=== PATIENT | male | born 1950 | race Caucasian/White ===

== ENCOUNTER 2016-07-23 14:47 | Outpatient (CLI) | payer BC | END 2016-07-23 14:48 | disposition home or self-care (01) | DX: G62.89 Other specified polyneuropathies (principal) ==

== ENCOUNTER 2017-03-06 04:56 | Observation (INO) | payer BC ==
--- NOTE | 2017-03-06 05:09 | ED Physician Documentation ---
PD HPI CHEST PAIN - Stated complaint Stated Complaint: CHEST PX - Chief complaint Chief Complaint: Cardiac - History obtained from History obtained from: Patient - History of Present Illness Timing - onset: Last night (He noted onset soon after dinner last night around 6 PM of substernal chest pain and pressure, feeling heaviness and like a bubble feeling in the substernal area. He did not have any discomfort with breathing. He did not have any shortness of breath. He had slight nausea but no vomiting. The symptoms continued for several hours until about 9 PM. He states it lessened at that point and he was able to go to sleep. He had very slight residual discomfort. He was awakened around 430 with the discomfort worse. He did not have any improvement with antacid nor Tylenol. He denies any prior similar episodes.) Timing - onset during: Rest Timing - duration: Hours Timing - details: Abrupt onset, Still present Quality: Pressure, Aching, Dull, Pain Location: Substernal Radiation: Jaw, Left upper extremity. No: Back, Abdominal Improved by: No: Rest, Antacids, Other medication (tylenol) Worsened by: No: Inspiration, Movement, Palpation, Position Associated symptoms: Nausea, Palpitations. No: Shortness of air, Diaphoresis, Feeling faint / dizzy, Cough Similar symptoms before: Has not had sx before Recently seen: Not recently seen Review of Systems Constitutional: denies: Fever Nose: denies: Rhinorrhea / runny nose, Congestion Throat: denies: Sore throat Cardiac: denies: Pedal edema, Calf pain Respiratory: denies: Cough GI: denies: Abdominal Pain, Vomiting, Diarrhea, Bloody / black stool : denies: Dysuria, Frequency Skin: denies: Rash, Lesions Neurologic: reports: Headache (had migraine type headache last evening after the chest pain had started, and the headache improved with Imitrex.). denies: Generalized weakness, Near syncope PD PAST MEDICAL HISTORY - Past Medical History Past Medical History: Yes Cardiovascular: Hypertension, High cholesterol Neuro: Headache/migraine Endocrine/Autoimmune: Other : Benign prostate hypertrophy Other Past Medical History: Factory V - Past Surgical History Past Surgical History: Yes - Present Medications Home Medications: Ambulatory Orders Medication Instructions Recorded Confirmed Ezetimibe [Zetia] 10 mg PO DAILY 12/14/14 03/06/17 Aspirin Chewable [St Sal 81 mg PO DAILY 03/06/17 03/06/17 Aspirin] Cyclobenzaprine [Flexeril] 10 mg PO TID PRN 03/06/17 03/06/17 Omeprazole 40 mg PO DAILY 03/06/17 03/06/17 Propranolol [Inderal] 80 mg PO TID 03/06/17 03/06/17 Sumatriptan Succinate [Imitrex] 50 mg PO Q4HR PRN 03/06/17 03/06/17 Tamsulosin [Flomax] 0.4 mg PO DAILY 03/06/17 03/06/17 - Allergies Allergies/Adverse Reactions: Allergies Allergy/AdvReac Type Severity Reaction Status Date / Time amoxicillin Allergy Unknown Verified 03/06/17 05:07 azithromycin [From Zithromax] Allergy Unknown Verified 03/06/17 05:07 doxycycline Allergy Unknown Verified 03/06/17 05:07 Mfqcnqs-Sqx-Npo Reductase Allergy Edema Verified 03/06/17 05:07 Inhibitor - Social History Does the pt smoke?: No Smoking Status: Never smoker Does the pt drink ETOH?: Yes Does the pt have substance abuse?: No - Immunizations Immunizations are current?: Yes - POLST Patient has POLST: No PD ED PE NORMAL - Vitals Vital signs reviewed: Yes - General General: Alert and oriented X 3, Well developed/nourished - HEENT HEENT: Moist mucous membranes, Pharynx benign - Neck Neck: Supple, no meningeal sign, No adenopathy, No JVD, No bruit - Cardiac Cardiac: RRR, No rub, Other (1/6 murmur at left border without radiation) - Respiratory Respiratory: Clear bilaterally - Abdomen Abdomen: Soft, Non tender - Male Male : Deferred - Rectal Rectal: Deferred - Back Back: No CVA TTP - Derm Derm: Normal color, Warm and dry - Extremities Extremities: No tenderness to palpate, Normal ROM s pain, No edema, No calf tenderness / cord - Neuro Neuro: Alert and oriented X 3, No motor deficit, Normal speech - Psych Psych: Normal mood, Normal affect Results - Vitals Vitals: Vital Signs - 24 hr 03/06/17 03/06/17 03/06/17 05:01 05:22 05:25 Temperature 35.9 C L Heart Rate 61 Respiratory 17 Rate Blood Pressure 179/99 H Blood Pressure 149/87 H [Left] O2 Saturation 97 03/06/17 03/06/17 03/06/17 05:48 05:58 06:17 Temperature Heart Rate 60 64 63 Respiratory 17 17 Rate Blood Pressure 148/86 H 117/77 117/69 Blood Pressure [Left] O2 Saturation 94 94 03/06/17 06:36 Temperature Heart Rate 57 L Respiratory 17 Rate Blood Pressure 125/76 Blood Pressure [Left] O2 Saturation 98 Oxygen O2 Source Room air - EKG (time done) 05:08 Rhythm: NSR [place]: Normal Intervals: Normal NV QRS: Normal Ischemia: Normal ST segments, ST elevation c/w ischemia (borderline ST elevation inferior leads without reciprocal changes. ). No: ST depression, Q waves, Hyperacute T waves - Labs Labs: Laboratory Tests 03/06/17 03/06/17 03/06/17 05:20 05:20 05:20 WBC 9.4 RBC 5.22 Hgb 16.0 Hct 46.6 MCV 89.3 MCH 30.7 MCHC 34.4 RDW 12.4 Plt Count 201 MPV 9.3 Neut # 5.9 Lymph # 2.1 [place] # 1.0 Eos # 0.4 Baso # 0.0 Absolute Nucleated RBC 0.00 Nucleated RBCs 0.1 D-Dimer Sodium 139 Potassium 3.8 Chloride 102 Carbon Dioxide 28 Anion Gap 9.0 BUN 20 Creatinine 0.9 Estimated GFR (MDRD) 85 L Glucose 122 H Calcium 9.5 Magnesium 1.9 Total Bilirubin 0.8 AST 19 ALT 25 Alkaline Phosphatase 88 Troponin I < 0.04 B-Natriuretic Peptide Total Protein 6.6 L Albumin 4.1 Globulin 2.5 Albumin/Globulin Ratio 1.6 Lipase 32 03/06/17 03/06/17 05:20 05:20 WBC RBC Hgb Hct MCV MCH MCHC RDW Plt Count MPV Neut # Lymph # [place] # Eos # Baso # Absolute Nucleated RBC Nucleated RBCs D-Dimer < 200.0 L Sodium Potassium Chloride Carbon Dioxide Anion Gap BUN Creatinine Estimated GFR (MDRD) Glucose Calcium Magnesium Total Bilirubin AST ALT Alkaline Phosphatase Troponin I B-Natriuretic Peptide 21 Total Protein Albumin Globulin Albumin/Globulin Ratio Lipase - Rads (name of study) chest Radiology: Prelim report reviewed, EMP read contemporaneously (no acute process) PD MEDICAL DECISION MAKING - ED course Complexity details: considered differential (He has slight ECG changes but not diagnostic. He had some pain last evening, but worse this morning about 1/2 hour [employer], so concern for the timing of it, when to consider negative troponins sufficient. He had improvement with NTG x 2, which though not diagnostic, adds to the concern for ACS. His ECG is not changed after the pain is improved with NTG. I think he needs to have serial Troponins as I would nestor the time for concern as 4:30 am when it worsened, and also would like to see ECHO to ensure normal heart wall motion. This would be available shortly later this morning. Will talk with Hospitalist about OBS, further testing, and more certainty about diagnosis. ), d/w patient Departure - Departure Disposition: ED Place in Observation Clinical Impression: Chest pain, rule out acute myocardial infarction Condition: Stable Record reviewed to determine appropriate education?: Yes
[2017-03-06] MEDS ORDERED: SODIUM CHLORIDE FLUSH 0.9% 10 ML SYRINGE IVP ONE (05:13)
[2017-03-06] MEDS ORDERED: ASPIRIN CHEW 81 MG TABLET PO STA (05:26)
[2017-03-06] MEDS ORDERED: NITROGLYCERIN SL 0.4 MG TABLET SL STA ×2 (05:27→05:57)
[2017-03-06] MEDS ORDERED: MAG HYDROX/AL HYDROX/SIMETH 30 ML UDC PO STA (05:27)
[2017-03-06] MEDS: LIDOCAINE VISCOUS 2% 15 ML UDC MM STA ×2 (05:33→12:06)
[2017-03-06] MEDS ORDERED: LIDOCAINE VISCOUS 2% 15 ML UDC MM ONE (05:34)
[2017-03-06] MEDS ORDERED: MAG HYDROX/AL HYDROX/SIMETH 30 ML UDC ONE (05:34)
[2017-03-06] MEDS ORDERED: ASPIRIN CHEW 81 MG TABLET ONE (05:34)
[2017-03-06 05:48] LABS: ALBUMIN/GLOBULIN RATIO 1.6 (1.0-2.2); BILIRUBIN,TOTAL 0.8 mg/dL (0.2-1.0); CALCIUM 9.5 mg/dL (8.5-10.3); CREATININE 0.9 mg/dL (0.6-1.2); MAGNESIUM 1.9 mg/dL (1.7-2.8); POTASSIUM 3.8 mmol/L (3.5-5.0); TOTAL PROTEIN 6.6 g/dL (6.7-8.2)
[2017-03-06] MEDS ORDERED: NITROGLYCERIN SL 0.4 MG TABLET SL ONE (05:52)
[2017-03-06 06:04] LABS: BASOPHILS % (AUTO) 0.4 %; EOSINOPHILS # (AUTO) 0.4 10^3/uL (0.0-0.7); EOSINOPHILS % (AUTO) 3.9 %; HCT - HEMATOCRIT 46.6 % (42.0-52.0); LYMPHOCYTES # (AUTO) 2.1 10^3/uL (1.5-3.5); LYMPHOCYTES % (AUTO) 22.5 %; MEAN CORPUSCULAR HEMOGLOBIN 30.7 pg (27.0-31.0); MEAN CORPUSCULAR HGB CONC 34.4 g/dL (32.0-36.0); MEAN CORPUSCULAR VOLUME 89.3 fL (80.0-94.0); MEAN PLATELET VOLUME 9.3 fL (7.4-11.4); MONOCYTES % (AUTO) 10.5 %; NEUTROPHILS # (AUTO) 5.9 10^3/uL (1.5-6.6); NEUTROPHILS % (AUTO) 62.7 %; NUCLEATED RED BLOOD CELLS AUTO 0.1 /100WBC; RED BLOOD COUNT 5.22 10^6/uL (4.70-6.10); RED CELL DISTRIBUTION WIDTH 12.4 % (12.0-15.0); UNCORRECTED WHITE BLOOD COUNT 9.4 x10^3/uL; WHITE BLOOD COUNT 9.4 x10^3/uL (4.8-10.8)
--- NOTE | 2017-03-06 06:04 | XRAY Preliminary Report ---
Exam: XR Chest 1 View IMPRESSION: 1. No acute abnormality seen in the chest. [facility] SITE ID: [id number]
--- NOTE | 2017-03-06 06:07 | XRAY Report ---
EXAM: CHEST RADIOGRAPHY EXAM DATE: 03/06/2017 05:42 AM. CLINICAL HISTORY: Chest pain. COMPARISON: 08/15/2009. TECHNIQUE: 1 view. FINDINGS: Lungs/Pleura: No alveolar consolidation or pleural effusion seen. No pneumothorax. Mediastinum: Lordotic position. Within exam limitations, cardiomediastinal contour is normal. Other: None. IMPRESSION: 1. No acute abnormality seen in the chest. [facility] Referring Provider Line: [phone] SITE ID: [id number]
[2017-03-06] MEDS ORDERED: MORPHINE 10 MG/ML VIAL IVP STA (07:03)
[2017-03-06] MEDS ORDERED: NITROGLYCERIN 2% PASTE TOP STA (07:03)
[2017-03-06] MEDS ORDERED: NITROGLYCERIN 2% PASTE TOP ONE (07:28)
[2017-03-06] MEDS ORDERED: MORPHINE 2 MG/ML SYRINGE ONE (07:30)
[2017-03-06] MEDS ORDERED: ONDANSETRON ODT 4 MG TABLET TL PRN (07:33)
[2017-03-06] MEDS ORDERED: MORPHINE 2 MG/ML SYRINGE IVP PRN (07:33)
[2017-03-06] MEDS ORDERED: SODIUM CHLORIDE FLUSH 0.9% 10 ML SYRINGE IVP PRN (07:33)
[2017-03-06] MEDS ORDERED: ACETAMINOPHEN 325 MG TABLET PO PRN (07:33)
[2017-03-06] MEDS ORDERED: NITROGLYCERIN SL 0.4 MG TABLET SL PRN (07:37)
[2017-03-06 08:07] LABS: CHOL/HDL RATIO 6.1 (<5.0); CHOLESTEROL 225 mg/dL; HDL CHOLESTEROL 37 mg/dL; LDL/HDL RATIO 3.5 (<3.6); TRIGLYCERIDES 286 mg/dL; VLDL CHOLESTEROL 57 mg/dL
[2017-03-06] MEDS ORDERED: POLYETHYLENE GLYCOL 3350 17 GM PACKET PO SCH (09:00)
[2017-03-06] MEDS ORDERED: OMEGA-3 ACID ETHYL ESTERS 1 GM CAPSULE PO SCH (09:00)
[2017-03-06] MEDS: SACCHAROMYCES BOULARDII 250 MG CAPSULE PO SCH ×2 (09:10→16:44)
--- NOTE | 2017-03-06 09:34 | HISTORY & PHYSICAL EXAMINATION ---
DATE OF OBSERVATION: 03/06/2017. CHIEF COMPLAINT: Chest pain/epigastric pain. HISTORY OF PRESENT ILLNESS: The patient is a very pleasant 66-year-old gentleman who presented to the ER this evening with a complaint of chest discomfort/epigastric pain that he states started several days ago, worsening last night after dinner. The patient states that he had gas pain several days ago . He took Gas-X, which did not help, then he took Advil. He stated that it got better and went away. Then, he was fine for 2 days and then last night after eating a fried chicken dinner with grapes, lisa t to bed and the pain started again. The pain woke him up approximately between 3 and 4 in the mornin g and was severe enough that his decided to convince him to come into the ER. The patient states he took his Prevacid that he takes for acid reflux and it did not help. He states the pain starts in the mid upper epigastric and radiates across his chest and then goes to his upper back. He said he c ould not sleep when the pain became so sharp. He describes it as intermittent and dull and then becom ing sharp pain. He does have an underlying history of migraine headaches and takes propranolol for th at he states helps to control the blood pressure and then of course helps to control the headache. He takes Imitrex p.r.n. when the headache gets so severe and is not relieved by propranolol. He was bryan gnosed with Helicobacter pylori several years ago, was put on antibiotics; however, never resolved. T he patient states that both of his parents are , and both of them had cancer. Mother had a hi story of intestinal cancer, along with history of migraine headaches as well. The patient states that he normally will take Advil when the Gas-X or Prevacid does not help the pain and that usually stops the chest pain, but not this time. The patient does admit to a history of high cholesterol. He does have an ALLERGY TO STATINS. He does take Zetia 10 mg daily to help control cholesterol. He states his diet has not been the best lately. He has been eating more higher high-fat foods and more dairy and high-fat beef. He states that this week in particular, he had been eating more beef products and dair y. Neither one of his parents had a cardiac history. 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 He does have a history of BPH. No other significant cardiac workup has b een done in several years. His last colonoscopy was 5 years ago. The patient does not smoke; however, he does have a drink of vodka on occasion, maybe 3 times a month. Upon presentation to the ER, the patient's blood pressure was 180 systolic. After receiving aspirin a nd nitroglycerin, blood pressure was then at 149/87. He states he did have resolution after receiving medication in the ER. At the time of assessment, he was pain free. The patient was also worked up fo r a possible PE. D-dimer was negative at less than 200. The patient's first troponin was less than 0. 04. He has not had an echocardiogram or a stress test in several years. He does not have a cardiologi st here on the [place]. His PCP is Dr. Menendez with . He has been compliant with all of his home medi cation. He already takes an aspirin daily and propranolol. He will be admitted for cardiac rule out, echocardiogram, and trending cardiac markers with a followup EKG. Of note, on his first EKG, it did s how PVCs, sinus rhythm with normal ST segments and no ST depression or Q-waves. ALLERGIES 1. AMOXICILLIN. 2. AZITHROMYCIN. 3. DOXYCYCLINE. 4. STATINS. 5. HMG-COA REDUCTASE INHIBITORS. HOME MEDICATIONS 1. Zetia 10 mg p.o. daily. 2. Baby aspirin 81 mg p.o. daily. 3. Flexeril 10 mg p.o. t.i.d. p.r.n. 4. Omeprazole 40 mg p.o. daily. 5. Propranolol 80 mg p.o. t.i.d. 6. Imitrex 50 mg p.o. q.4 hours p.r.n. 7. Flomax 0.4 mg p.o. daily. The patient does not take any supplements and does take Advil [id number] as needed and does pedro e Gas-X for indigestion. PAST MEDICAL HISTORY 1. Hypertension. 2. Hyperlipidemia. 3. Headache/migraine. 4. Benign prostatic hypertrophy. FAMILY HISTORY: The patient states both brother and father had Factor V. Mom has , of intestinal cancer, had a history of headaches. Father with CVA, also had intestinal prob lems, but not cancer. SOCIAL HISTORY: The patient states he drinks vodka a couple times a month. Does not smoke cigarettes and does not use illicit street drugs. PAST SURGICAL HISTORY: None. The patient does not have a POLST on file. REVIEW OF SYSTEMS: Ten systems have been reviewed and negative with exception as discussed in the HPI prior. He is negative for sore throat, pedal edema, calf pain, cough, abdominal pain, vomiting, diar juanjo, bloody or black stools, dysuria, or rash. He does report a headache, chest discomfort. Denies c ough or shortness of breath. PHYSICAL EXAMINATION CONSTITUTIONAL: The patient is alert, in no acute distress. VITAL SIGNS: Blood pressure 179/99, heart rate 61, respirations 17, oxygen saturation 97% on room air , temperature 35.9. EYES: Pupils are equal, round and reactive to light and accommodation. Conjunctiv ae and sclerae was nonicteric, not injected. ENT: Nares are patent. No nasal discharge. Oropharynx had no masses, exudates or lesions. Mucous memb ranes are moist. NECK: Supple. No thyromegaly. Trachea is midline. RESPIRATORY: Breath sounds were clear and equal bilaterally. No retractions or nasal flaring and no i ncreased work of breathing. CARDIOVASCULAR: Sinus rate and rhythm. S1, S2. No murmurs or gallops. No JVD. GASTROINTESTINAL: Abdomen was soft, nondistended. No guarding or rebound. No pain with palpation. No hepatosplenomegaly noted. GENITOURINARY: No CVA tenderness, no bladder distention. SKIN: Warm, dry, intact. Normal turgor. No evidence of edema bilaterally to extremities. HEMATOLOGIC: No active bleeding. The patient is hemodynamically stable. LYMPHATICS: No cervical, axillary, supraclavicular lymphadenopathy is noted. NEUROLOGIC: The patient is alert, GCS 15. Cranial nerves 2 through 7 grossly intact. Sensory was inta ct. PSYCHIATRIC: Oriented x3. GCS 15, cooperative, pleasant mood. LABORATORY AND DIAGNOSTICS: I personally reviewed laboratory and diagnostic data in the medical recor d. The results are as follows. Abnormalities include a glucose of 122. GFR 85. Sodium 139, potassium 3.8, magnesium 1.9. First troponin less than 0.04. WBC is 9.4. D-dimer was less than 200, BNP 21, tot al protein 6.6. Other laboratory values were essentially unremarkable. IMAGING Chest x-ray, impression: Showed no acute processes, infiltrate, or pleural effusion. EKG showed normal QRS, normal [place] intervals, and normal sinus rhythm with no ST elevation or ischemia. ASSESSMENT AND PLAN 1. Acute mid upper epigastric/substernal chest pain with risk for cardiac etiology. PLAN: Admit the patient to observation. Will trend cardiac markers. Repeat EKG. Chest pain protocol w ith morphine, oxygen, nitroglycerin, and aspirin. The patient is already on a beta tex. The patie nt did receive aspirin at time of evaluation in the ER. The patient is already on a medication for ch olesterol, not a statin, due to the patient's ALLERGY. We will continue on the propranolol and baby a spirin. 2. Acute on chronic migraine type headache. PLAN: Continue on Imitrex p.r.n. and propanolol. The patient has IV morphine for pain and Tylenol for mild pain. 3. Hyperlipidemia, unspecified. PLAN: We will get a lipid profile. The patient does take Zetia, will continue. The patient prefers no t to be on a statin due to ALLERGY. We will start with Jean 3 and add niacin as well. Encouraged low -fat cardiac diet. 4. Chronic benign prostatic hypertrophy. PLAN: Continue the patient on Flomax. Continue to monitor urinary output. We will get a urinalysis. 5. Chronic gastroesophageal reflux. PLAN: Continue the patient on omeprazole, and if the patient continues to have upper epigastric pain, we will get an ultrasound of the abdomen to rule out other underlying possible diagnosis including g allbladder and hiatal hernia. 6. Deep venous thrombosis prophylaxis with Lovenox and foot pumps. 7. STATUS: The patient is a FULL CODE STATUS. 8. Risk assessment/disposition. The patient is high risk for worsening comorbidities. He will require IV medication with high risk for toxicity. Additional diagnostics and code status was addressed at [facility] with both he and his . Time spent on evaluation, assessment and planning was 45 minutes. JOB #: [id number] EXT JOB #:[id number]
[2017-03-06 13:41] LABS: HEMOGLOBIN A1C 0.61 g/dL
[2017-03-06] MEDS ORDERED: GI COCKTAIL 120 ML BOTTLE PO SCH (14:00)
[2017-03-06] MEDS ORDERED: SODIUM CHLORIDE FLUSH 0.9% 10 ML SYRINGE IVP SCH (14:00)
[2017-03-06 14:41] LABS: BILIRUBIN,URINE NEGATIVE (NEGATIVE)
[2017-03-06] MEDS ORDERED: KETOROLAC 30 MG/ML VIAL IVP PRN (14:44)
[2017-03-06] MEDS ORDERED: SUMAtriptan 25 MG TABLET PO PRN (14:44)
[2017-03-06 14:51] LABS: UR CULTURE IF IND NOT INDICATED; WBC,URINE 0-3 /HPF (0-3)
[2017-03-06] MEDS ORDERED: IOPAMIDOL-300 100 ML VIAL ONE (15:00)
[2017-03-06] MEDS ORDERED: IOPAMIDOL-300 100 ML VIAL IVP ONE (16:18)
--- NOTE | 2017-03-06 16:58 | CT Preliminary Report ---
Exam: CT Chest Angio (PE) IMPRESSION: 1. No pulmonary emboli. 2. No aortic aneurysm or dissection. 3. Minor atelectasis at the bases and posterior left upper lobe calcified granuloma, otherwise clear lungs. [facility] SITE ID: [id number]
--- NOTE | 2017-03-06 17:00 | CT Report ---
EXAM: CT ANGIOGRAM CHEST EXAM DATE: 03/06/2017 04:19 PM. CLINICAL HISTORY: Continuing chest pain. Concern for PE. COMPARISON: 08/15/2009. TECHNIQUE: Routine helical imaging was performed through the chest in the pulmonary arterial phase. I V Contrast: 100 cc of Isovue-300. Reconstructions: Coronal 3-D MIP reconstructions.Sagittal and coron al. In accordance with CT protocol optimization, one or more of the following dose reduction techniques w ere utilized for this exam: automated exposure control, adjustment of mA and/or KV based on patient s ize, or use of iterative reconstructive technique. FINDINGS: Pulmonary Arteries: Diagnostic quality: Adequate through the segmental arteries. No evidence for acute or chronic pulmona ry emboli. RV/LV is within normal limits. There is no interventricular septal bowing. There is no reflux of cont rast material in the IVC. Lungs/Pleura: Minor atelectasis of the bases. Stable small posterior left upper lobe calcified granul graham, otherwise no consolidation, nodules, or edema. No effusions or pneumothorax. Mediastinum: Minimal aortic and coronary artery calcification noted. No cardiac enlargement or adenop athy. Thoracic Aorta: Unremarkable. Upper Abdomen: Unremarkable. Other: None. IMPRESSION: 1. No pulmonary emboli. 2. No aortic aneurysm or dissection. 3. Minor atelectasis at the bases and posterior left upper lobe calcified granuloma, otherwise clear lungs. [facility] Referring Provider Line: [phone] SITE ID: [id number]
--- NOTE | 2017-03-06 17:15 | Ultrasound Preliminary Report ---
Exam: US Abdomen Limited IMPRESSION: Normal. No cholelithiasis or cholecystitis. [facility] SITE ID: [id number]
--- NOTE | 2017-03-06 17:17 | Ultrasound Report ---
EXAM: ABDOMEN ULTRASOUND LIMITED, RUQ EXAM DATE: 03/06/2017 04:12 PM. CLINICAL HISTORY: Upper abdomen pain. COMPARISON: None. TECHNIQUE: Real-time scanning was performed with static images obtained. FINDINGS: Liver: Normal in size and echotexture. 13.0 cm. Main portal vein flow: Hepatopetal. Gallbladder: Normal. No stones, wall thickening, or sonographic Lopez's sign. Biliary System: CBD measures 5 mm. No intrahepatic or extrahepatic ductal dilatation. Other: The visualized pancreas and right kidney are unremarkable. No free fluid. IMPRESSION: Normal. No cholelithiasis or cholecystitis. [facility] Referring Provider Line: [phone] SITE ID: [id number]
--- NOTE | 2017-03-06 18:01 | Discharge Plan ---
Discharge Plan Disposition: Home, Self Care Condition: Good Prescriptions: Nitroglycerin [Nitrostat] 0.4 mg SL Q5MIN PRN #1 bottle PRN Reason: Chest Pain [place]-3 Acid Ethyl Esters [Lovaza] 1 gm PO BID #30 capsule Niacin [Niaspan] 500 mg PO QPM #30 tablet Ketorolac [Toradol] 10 mg PO Q6H #20 tablet Diet: Cardiac Activity Restrictions: No Restrictions Shower Restrictions: No Driving Restrictions: No Weight Bearing: Full Weight Instruction Topics: CTA, ED Chest Pain NonCardiac, ED Chest Pain Angina Stable , ED Chest Pain Costochondritis, ED Chest Pain Noncardiac Ch Additional Instructions or Follow Up instructions: PLEASE SEE YOUR PRIMARY CARE PROVIDER WITHIN THE NEXT 2-3 DAYS AND REFERRAL FOR CARDIOLOGY IN THE NEXT WEEK. YOU NEED A STRESS TEST PLEASE FOLLOW WITH A HEART HEALTHY DIET AND MONITOR YOUR SALT INTAKE PLEASE USE CPAP AT NIGHT AND HAVING A REEVALUATION OF THE SLEEP STUDY RECOMMENDED. PLEASE CONTINUE TO TAKE HOME MEDICATIONS PRESCRIBED AND YOU HAVE BEEN GIVEN A PRESCRIPTION FOR NITRO, TORADOL AND NIACIN AND OMEGA 3. PLEASE TAKE PRESCRIBED. DRINK PLENTY OF WATER DAILY AND AVOID ALCOHOL AND SODA. PLEASE RETURN TO THE ER IF YOU HAVE REOCCURRING SYMPTOMS OR IF YOU HAVE CHEST PAIN OR SHORTNESS OF BREATH, CALL 911 IF SYMPTOMS CONTINUE No Smoking: If you smoke, Please STOP! Call for help. Follow-up with: Raf Yan MD [Primary Care Provider] -
[2017-03-06 18:13] VITALS: BP 122/68
--- NOTE | 2017-03-06 18:19 | DISCHARGE SUMMARY ---
"Discharge Summary Admit Date: 03/06/17 Discharge Date: 03/06/17 Discharging Provider: BABAK JACOBSEN APRN Code Status: Attempt Resuscitation Condition at Discharge: Good Discharge Disposition: 01 Home, Self Care Discharge Facility Name: HOME - DIAGNOSES Admission Diagnoses: 1. ACUTE SUBSTERNAL CHEST PAIN WITH HIGH RISK FOR CARDIAC ETIOLOGY 2. 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 HEADACHE, ACUTE UNSPECIFIED 5. CHRONIC MIGRAINES, UNSPECIFIED 6. CHRONIC JACK 7. CHRONIC GERD Discharge Diagnoses with Status of Each Condition: 1. ACUTE SUBSTERNAL CHEST DISCOMFORT WITH PROBABLE ANGINA 2. ACUTE MIGRAINE HEADACHE 3. MIXED HYPERLIPIDEMIA WITH HYPERTRIGLYCERIDES 4. CHRONIC JACK 5. ESSENTIAL HYPERTENSION 6. CHRONIC BPH 7. GERD, chronic - HPI History of Present Illness: - History of Present Illness Timing - onset: Last night (He noted onset soon after dinner last night around 6 PM of substernal chest pain and pressure, feeling heaviness and like a bubble feeling in the substernal area. He did not have any discomfort with breathing. He did not have any shortness of breath. He had slight nausea but no vomiting. The symptoms continued for several hours until about 9 PM. He states it lessened at that point and he was able to go to sleep. He had very slight residual discomfort. He was awakened around 430 with the discomfort worse. He did not have any improvement with antacid nor Tylenol. He denies any prior similar episodes.) Timing - onset during: Rest Timing - duration: Hours Timing - details: Abrupt onset, Still present Quality: Pressure, Aching, Dull, Pain Location: Substernal Radiation: Jaw, Left upper extremity. No: Back, Abdominal Improved by: No: Rest, Antacids, Other medication (tylenol) Worsened by: No: Inspiration, Movement, Palpation, Position Associated symptoms: Nausea, Palpitations. No: Shortness of air, Diaphoresis, Feeling faint / dizzy, Cough Similar symptoms before: Has not had sx before Recently seen: Not recently seen - CONSULTS | PROCEDURES Consultations: NONE Procedures: ECHOCARDIOGRAM: GRADE 1 DIASTOLIC DYSFUNCTION WITH EF 65% ULTRASOUND OF THE ABDOMEN: NEGATIVE FOR ACUTE CHOLECYSTITIS CTA RULE OUT PE OR AORTA- negative for PE, NO AORTIC ANEURYSM - HOSPITAL COURSE Hospital Course: 1. ACUTE SUBSTERNAL CHEST DISCOMFORT WITH PROBABLE ANGINA Patient ruled out with cardiac enzymes trended. he received morphine, oxygen, aspirin and nitro SL. He had three troponins and all were negative. His echocardiography was EF for 65%. He was on IVF for gentle hydration. He continued on home dosage of blood pressure medications, including beta tex. Both EKG showed PVC with no STEMI and no ischemia. Since there was a question for GI discomfort, GI cocktail given. He also underwent abdominal ultrasound to rule out possible cholelithiasis 2. ACUTE MIGRAINE HEADACHE patient was given oxygen and morphine for acute headache. He takes imitrex at home. He was also given tylenol for mild pain. He had IV zofran and phenergan for nausea 3. 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 He was on omega 3 and niacin and takes Zetia at home that continued. He had a lipid profile that was high for triglycerides. He was counseled on a low fat diet and cardiac diet 4. CHRONIC JACK Patient remained on oxygen overnight and is on CPAP at home. supplemental oxygen remained at 2 liters [place] 5. ESSENTIAL HYPERTENSION Patient remained on his blood pressure medications from home including beta tex 6. CHRONIC BPH Patient continued on Flomax and monitored his output. medications monitored for kidneys. 7. CHRONIC GERD Patient continued on home PPI and was counseled on diet and avoidance of spicey foods. He received a GI cocktail since he had upper epigastric pain as well He was on SCD and Lovenox for DVT prophylaxis. Patient was discharged home with nitro and cholesterol medications and aspirin. 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 He will need a outpatient stress test. - ALLERGIES Allergies/Adverse Reactions: Allergies Allergy/AdvReac Type Severity Reaction Status Date / Time amoxicillin Allergy Unknown Verified 03/06/17 05:07 azithromycin [From Zithromax] Allergy Unknown Verified 03/06/17 05:07 doxycycline Allergy Unknown Verified 03/06/17 05:07 [id number] Reductase Allergy Edema Verified 03/06/17 05:07 Inhibitor - MEDICATIONS Home Medications: Ambulatory Orders Medication Instructions Recorded Confirmed Ezetimibe [Zetia] 10 mg PO DAILY 12/14/14 03/06/17 Aspirin Chewable [St Sal 81 mg PO DAILY 03/06/17 03/06/17 Aspirin] Cyclobenzaprine [Flexeril] 10 mg PO TID PRN 03/06/17 03/06/17 Ketorolac [Toradol] 10 mg PO Q6H #20 tablet 03/06/17 Niacin [Niaspan] 500 mg PO QPM #30 tablet 03/06/17 Nitroglycerin [Nitrostat] 0.4 mg SL Q5MIN PRN #1 bottle 03/06/17 [place]-3 Acid Ethyl Esters [Lovaza] 1 gm PO BID #30 capsule 03/06/17 Omeprazole 40 mg PO DAILY 03/06/17 03/06/17 Propranolol [Inderal] 80 mg PO TID 03/06/17 03/06/17 Sumatriptan Succinate [Imitrex] 50 mg PO Q4HR PRN 03/06/17 03/06/17 Tamsulosin [Flomax] 0.4 mg PO DAILY 03/06/17 03/06/17 - PHYSICAL EXAM AT DISCHARGE General Appearance: positive: No acute distress, Alert Eyes Bilateral: positive: Normal inspection, PERRL, EOMI ENT: positive: ENT inspection nml, Pharynx nml, No signs of dehydration Neck: positive: Nml inspection, Thyroid nml, No JVD, Trachea midline Respiratory: positive: Chest non-tender, No respiratory distress, Breath sounds nml Cardiovascular: positive: Regular rate & rhythm, No murmur, No gallop Peripheral Pulses: positive: 2+ Abdomen: positive: Non-tender, No organomegaly, Nml bowel sounds, No distention Rectal: positive: Non-tender Back: positive: Nml inspection. negative: CVA tenderness (R), CVA tenderness (L ) Skin: positive: Color nml, No rash, Warm, Dry Extremities: positive: Non-tender, Full ROM, Nml appearance, No pedal edema Neurologic/Psychiatric: positive: Oriented x3, CN's nml (2-12), Motor nml, Sensation nml, Mood/affect nml - LABS Result Diagrams: 03/06/17 05:20 03/06/17 05:20 Other Lab Results: Abnormal Lab Results 03/06/17 03/06/17 03/06/17 05:20 05:20 05:20 D-Dimer < 200.0 ng/mL L ng/mL (200.0-255.0) Estimated GFR (MDRD) 85 L (>89) Glucose 122 mg/dL H mg/dL (70-100) Estim Average Glucose Total Protein 6.6 g/dL L g/dL (6.7-8.2) Triglycerides 286 mg/dL H mg/dL ( - 149) Cholesterol 225 mg/dL H mg/dL ( - 199) LDL Cholesterol, Calc 131 mg/dL H mg/dL ( - 129) HDL Cholesterol 37 mg/dL L mg/dL (60 - ) 03/06/17 12:45 D-Dimer Estimated GFR (MDRD) Glucose Estim Average Glucose 114 H (70-100) Total Protein Triglycerides Cholesterol LDL Cholesterol, Calc HDL Cholesterol - DIAGNOSTIC IMAGING Diagnostic Imaging Results: Final report reviewed Diagnostic Imaging Results Comments: SEE REPORT IN THE HPI ABOVE Laboratory Results WBC 9.4 x10^3/uL (4.8-10.8) 03/06/17 05:20 RBC 5.22 10^6/uL (4.70-6.10) 03/06/17 05:20 Hgb 16.0 g/dL (14.0-18.0) 03/06/17 05:20 Hct 46.6 % (42.0-52.0) 03/06/17 05:20 MCV 89.3 fL (80.0-94.0) 03/06/17 05:20 MCH 30.7 pg (27.0-31.0) 03/06/17 05:20 MCHC 34.4 g/dL (32.0-36.0) 03/06/17 05:20 RDW 12.4 % (12.0-15.0) 03/06/17 05:20 Plt Count 201 10^3/uL (130-450) 03/06/17 05:20 MPV 9.3 fL (7.4-11.4) 03/06/17 05:20 Neut # 5.9 10^3/uL (1.5-6.6) 03/06/17 05:20 Lymph # 2.1 10^3/uL (1.5-3.5) 03/06/17 05:20 Ada # 1.0 10^3/uL (0.0-1.0) 03/06/17 05:20 Eos # 0.4 10^3/uL (0.0-0.7) 03/06/17 05:20 Baso # 0.0 10^3/uL (0.0-0.1) 03/06/17 05:20 Absolute Nucleated RBC 0.00 x10^3/uL 03/06/17 05:20 Nucleated RBCs 0.1 /100WBC 03/06/17 05:20 D-Dimer < 200.0 ng/mL (200.0-255.0) L 03/06/17 05:20 Sodium 139 mmol/L (135-145) 03/06/17 05:20 Potassium 3.8 mmol/L (3.5-5.0) 03/06/17 05:20 Chloride 102 mmol/L (101-111) 03/06/17 05:20 Carbon Dioxide 28 mmol/L (21-32) 03/06/17 05:20 Anion Gap 9.0 (6-13) 03/06/17 05:20 BUN 20 mg/dL (6-20) 03/06/17 05:20 Creatinine 0.9 mg/dL (0.6-1.2) 03/06/17 05:20 Estimated GFR (MDRD) 85 (>89) L 03/06/17 05:20 Glucose 122 mg/dL (70-100) H 03/06/17 05:20 Glycated Hemoglobin 5.6 % (4.6-6.2) 03/06/17 12:45 Estim Average Glucose 114 (70-100) H 03/06/17 12:45 Calcium 9.5 mg/dL (8.5-10.3) 03/06/17 05:20 Magnesium 1.9 mg/dL (1.7-2.8) 03/06/17 05:20 Total Bilirubin 0.8 mg/dL (0.2-1.0) 03/06/17 05:20 AST 19 IU/L (10-42) 03/06/17 05:20 ALT 25 IU/L (10-60) 03/06/17 05:20 Alkaline Phosphatase 88 IU/L (42-121) 03/06/17 05:20 Troponin I < 0.04 ng/mL (<0.49) 03/06/17 12:45 C-React Prot High Sens 7.8 mg/L 03/06/17 05:20 B-Natriuretic Peptide 21 pg/mL (5-100) 03/06/17 05:20 Total Protein 6.6 g/dL (6.7-8.2) L 03/06/17 05:20 Albumin 4.1 g/dL (3.2-5.5) 03/06/17 05:20 Globulin 2.5 g/dL (2.1-4.2) 03/06/17 05:20 Albumin/Globulin Ratio 1.6 (1.0-2.2) 03/06/17 05:20 Triglycerides 286 mg/dL (-149) H 03/06/17 05:20 Cholesterol 225 mg/dL (-199) H 03/06/17 05:20 LDL Cholesterol, Calc 131 mg/dL (-129) H 03/06/17 05:20 VLDL Cholesterol 57 mg/dL 03/06/17 05:20 HDL Cholesterol 37 mg/dL (60-) L 03/06/17 05:20 LDL/HDL Ratio 3.5 (<3.6) 03/06/17 05:20 Cholesterol/HDL Ratio 6.1 (<5.0) 03/06/17 05:20 Lipase 32 U/L (22-51) 03/06/17 05:20 Urine Color YELLOW 03/06/17 14:10 Urine Clarity CLEAR (CLEAR) 03/06/17 14:10 Urine pH 6.0 PH (5.0-7.5) 03/06/17 14:10 Ur Specific [place] 1.020 (1.002-1.030) 03/06/17 14:10 Urine Protein NEGATIVE mg/dL (NEGATIVE) 03/06/17 14:10 Urine Glucose (UA) NEGATIVE mg/dL (NEGATIVE) 03/06/17 14:10 Urine Ketones NEGATIVE mg/dL (NEGATIVE) 03/06/17 14:10 Urine Occult Blood NEGATIVE (NEGATIVE) 03/06/17 14:10 Urine Nitrite NEGATIVE (NEGATIVE) 03/06/17 14:10 Urine Bilirubin NEGATIVE (NEGATIVE) 03/06/17 14:10 Urine Urobilinogen 0.2 (NORMAL) E.U./dL (NORMAL) 03/06/17 14:10 Ur Leukocyte Esterase NEGATIVE (NEGATIVE) 03/06/17 14:10 Urine RBC 0-5 /HPF (0-5) 03/06/17 14:10 Urine WBC 0-3 /HPF (0-3) 03/06/17 14:10 Ur Squamous Epith Cells RARE Squamous (<= Few) 03/06/17 14:10 Urine Bacteria Rare /HPF (None Seen) 03/06/17 14:10 Urine Casts 0-2 Hyaline Casts /LPF 03/06/17 14:10 Urine Culture Comments NOT INDICATED 03/06/17 14:10 Last Vital Signs Temp 36.6 C 03/06/17 18:11 Pulse 77 03/06/17 18:11 Resp 18 03/06/17 18:11 BP 122/68 03/06/17 18:11 Pulse Ox 96 03/06/17 18:11 Allergies amoxicillin Allergy (Verified 03/06/17 05:07) Unknown azithromycin [From Zithromax] Allergy (Verified 03/06/17 05:07) Unknown doxycycline Allergy (Verified 03/06/17 05:07) Unknown Rebbxka-Jjf-Ozh Reductase Inhibitor Allergy (Verified 03/06/17 05:07) Edema Active Medications Acetaminophen (Tylenol) 650 mg PO Q4HR PRN PRN Reason: Pain 1 to 4 Last Admin: 03/06/17 09:11 Dose: 650 mg Aspirin (Trina) 325 mg PO ONCE ONE Stop: 03/07/17 07:38 Ketorolac Tromethamine (Toradol Inj) 30 mg IVP Q6HR PRN PRN Reason: PAIN Stop: 03/11/17 14:43 Last Admin: 03/06/17 14:53 Dose: 30 mg Morphine Sulfate (Morphine) 2 mg IVP Q2H PRN PRN Reason: Pain 8 to 10 Last Admin: 03/06/17 09:57 Dose: 2 mg Niacin (Niaspan) 500 mg PO QPM [facility] Nitroglycerin (Nitrostat) 0.4 mg SL Q5MIN PRN PRN Reason: Chest Pain [id number] Ethyl Esters (Lovaza) 1 gm PO BID [facility] Last Admin: 03/06/17 09:11 Dose: 1 gm Ondansetron HCl (Zofran Odt) 4 mg TL Q6HR PRN PRN Reason: Nausea / Vomiting Last Admin: 03/06/17 12:06 Dose: 4 mg Pantoprazole Sodium (Protonix) 40 mg PO DAILY [facility] Polyethylene Glycol (Miralax) 17 gm PO DAILY [facility] Last Admin: 03/06/17 09:11 Dose: Not Given Propranolol HCl (Inderal) 80 mg PO TID [facility] Saccharomyces Boulardii (Florastor) 500 mg PO BIDWM [facility] Last Admin: 03/06/17 16:44 Dose: Not Given Sodium Chloride (Normal Saline Flush 0.9%) 10 ml IVP PRN PRN PRN Reason: NEEDED PER PROVIDER ORDERS Last Admin: 03/06/17 14:55 Dose: 20 ml Sodium Chloride (Normal Saline Flush 0.9%) 10 ml IVP Q8HR [facility] Last Admin: 03/06/17 09:59 Dose: 20 ml Sumatriptan Succinate (Imitrex) 50 mg PO Q4HR PRN PRN Reason: MIGRAINE Tamsulosin HCl (Flomax) 0.4 mg PO DAILY [facility] Intake & Output 03/05/17 03/06/17 23:59 23:59 Intake Total 480 Output Total 150 Balance 330 Orders 03/06/17 07:33 Activity Orders [RC] Routine IO [RC] IOSHIFT Initiate Bowel Care Protocol [RC] .protocol Initiate Line Care Protocol [RC] .protocol Initiate Personal Care Protoco [RC] .protocol Oxygen Therapy [RC] PRN Vital Signs [RC] Q8HR Acetaminophen [Tylenol] 650 mg PO Q4HR PRN Morphine Inj [Morphine] 2 mg IVP Q2H PRN Ondansetron Odt [Zofran Odt] 4 mg TL Q6HR PRN Sodium Chloride Flush 0.9% [Normal Saline Flush 0.9%] 10 ml IVP PRN PRN Code Status [OTHERS] Routine Condition of Patient [OTHERS] Routine DVT Prophylaxis [OTHERS] Routine 03/06/17 07:35 Daily Weight [RC] 0600 Telemetry- [RC] Routine 03/06/17 07:36 Foot Pumps [RC] QSHIFT 03/06/17 07:37 Nitroglycerin [Nitrostat] 0.4 mg SL Q5MIN PRN 03/06/17 07:40 Echo Transthoracic Complete [ECHO] Stat 03/06/17 08:00 Saccharomyces Boulardii [Florastor] 500 mg PO BIDWM 03/06/17 09:00 [place]-3 Acid Ethyl Esters [Lovaza] 1 gm PO BID Polyethylene Glycol 3350 [Miralax] 17 gm PO DAILY 03/06/17 14:00 Sodium Chloride Flush 0.9% [Normal Saline Flush 0.9%] 10 ml IVP Q8HR 03/06/17 14:44 Ketorolac Inj [Toradol Inj] 30 mg IVP Q6HR PRN Sumatriptan [Imitrex] 50 mg PO Q4HR PRN 03/06/17 18:15 Discharge [RC] .ONCE 03/06/17 18:37 TROPONIN I [IAI] Timed 03/06/17 21:00 Niacin [Niaspan] 500 mg PO QPM 03/06/17 22:00 Propranolol [Inderal] 80 mg PO TID 03/06/17 Breakfast Cardiac Diet [DIET] 03/07/17 05:00 CBC - COMP BLD CT W/AUTO DIFF [HEME] DAILYLAB COMPREHENSIVE METABOLIC PANEL [CHEM] DAILYLAB 03/07/17 07:37 Aspirin [Trina] 325 mg PO ONCE ONE 03/07/17 09:00 Pantoprazole [Protonix] 40 mg PO DAILY Tamsulosin [Flomax] 0.4 mg PO DAILY Lab Tests 03/06/17 03/06/17 03/06/17 05:20 05:20 05:20 WBC 9.4 RBC 5.22 Hgb 16.0 Hct 46.6 MCV 89.3 MCH 30.7 MCHC 34.4 RDW 12.4 Plt Count 201 MPV 9.3 Neut # 5.9 Lymph # 2.1 Ada # 1.0 Eos # 0.4 Baso # 0.0 Absolute Nucleated RBC 0.00 Nucleated RBCs 0.1 D-Dimer Sodium 139 Potassium 3.8 Chloride 102 Carbon Dioxide 28 Anion Gap 9.0 BUN 20 Creatinine 0.9 Estimated GFR (MDRD) 85 L Glucose 122 H Glycated Hemoglobin Estim Average Glucose Calcium 9.5 Magnesium 1.9 Total Bilirubin 0.8 AST 19 ALT 25 Alkaline Phosphatase 88 Troponin I < 0.04 C-React Prot High Sens B-Natriuretic Peptide Total Protein 6.6 L Albumin 4.1 Globulin 2.5 Albumin/Globulin Ratio 1.6 Triglycerides Cholesterol LDL Cholesterol, Calc VLDL Cholesterol HDL Cholesterol LDL/HDL Ratio Cholesterol/HDL Ratio Lipase 32 Urine Color Urine Clarity Urine pH Ur Specific [place] Urine Protein Urine Glucose (UA) Urine Ketones Urine Occult Blood Urine Nitrite Urine Bilirubin Urine Urobilinogen Ur Leukocyte Esterase Urine RBC Urine WBC Ur Squamous Epith Cells Urine Bacteria Urine Casts Urine Culture Comments 03/06/17 03/06/17 03/06/17 05:20 05:20 05:20 WBC RBC Hgb Hct MCV MCH MCHC RDW Plt Count MPV Neut # Lymph # Ada # Eos # Baso # Absolute Nucleated RBC Nucleated RBCs D-Dimer < 200.0 L Sodium Potassium Chloride Carbon Dioxide Anion Gap BUN Creatinine Estimated GFR (MDRD) Glucose Glycated Hemoglobin Estim Average Glucose Calcium Magnesium Total Bilirubin AST ALT Alkaline Phosphatase Troponin I C-React Prot High Sens 7.8 B-Natriuretic Peptide 21 Total Protein Albumin Globulin Albumin/Globulin Ratio Triglycerides 286 H Cholesterol 225 H LDL Cholesterol, Calc 131 H VLDL Cholesterol 57 HDL Cholesterol 37 L LDL/HDL Ratio 3.5 Cholesterol/HDL Ratio 6.1 Lipase Urine Color Urine Clarity Urine pH Ur Specific [place] Urine Protein Urine Glucose (UA) Urine Ketones Urine Occult Blood Urine Nitrite Urine Bilirubin Urine Urobilinogen Ur Leukocyte Esterase Urine RBC Urine WBC Ur Squamous Epith Cells Urine Bacteria Urine Casts Urine Culture Comments 03/06/17 03/06/17 03/06/17 12:45 12:45 14:10 WBC RBC Hgb Hct MCV MCH MCHC RDW Plt Count MPV Neut # Lymph # Ada # Eos # Baso # Absolute Nucleated RBC Nucleated RBCs D-Dimer Sodium Potassium Chloride Carbon Dioxide Anion Gap BUN Creatinine Estimated GFR (MDRD) Glucose Glycated Hemoglobin 5.6 Estim Average Glucose 114 H Calcium Magnesium Total Bilirubin AST ALT Alkaline Phosphatase Troponin I < 0.04 C-React Prot High Sens B-Natriuretic Peptide Total Protein Albumin Globulin Albumin/Globulin Ratio Triglycerides Cholesterol LDL Cholesterol, Calc VLDL Cholesterol HDL Cholesterol LDL/HDL Ratio Cholesterol/HDL Ratio Lipase Urine Color YELLOW Urine Clarity CLEAR Urine pH 6.0 Ur Specific [place] 1.020 Urine Protein NEGATIVE Urine Glucose (UA) NEGATIVE Urine Ketones NEGATIVE Urine Occult Blood NEGATIVE Urine Nitrite NEGATIVE Urine Bilirubin NEGATIVE Urine Urobilinogen 0.2 (NORMAL) Ur Leukocyte Esterase NEGATIVE Urine RBC 0-5 Urine WBC 0-3 Ur Squamous Epith Cells RARE Squamous Urine Bacteria Rare Urine Casts 0-2 Hyaline Casts Urine Culture Comments NOT INDICATED - FOLLOW UP Follow Up: PATIENT WAS INSTRUCTED TO SEE HIS PRIMARY CARE PROVIDER WITHIN THE NEXT WEEK AND TO SCHEDULE AN OUTPATIENT STRESS TEST. HE NEEDS TO SEE A PATTERNMAKER ALL AROUND HE WAS TO GO HOME WITH FAMILY AND WAS GIVEN PRESCRIPTIONS FOR OMEGA 3, NITRO, TORADOL AND NIACIN HE WAS STABLE TO BE DISCHARGED HOME - TIME SPENT Time Spent in Discharge (Minutes): 45 (FOR DISCHARGE PLANNING AND ASSESSMENT)"
[2017-03-06] MEDS ORDERED: NIACIN ER 500 MG TABLET PO SCH (21:00)
[2017-03-06] MEDS ORDERED: PROPRANOLOL 40 MG TABLET PO SCH (22:00)
[2017-03-07] MEDS ORDERED: ASPIRIN 325 MG TABLET PO ONE (07:37)
[2017-03-07] MEDS ORDERED: PANTOPRAZOLE 40 MG TABLET PO SCH (09:00)
[2017-03-07] MEDS ORDERED: TAMSULOSIN 0.4 MG CAPSULE PO SCH (09:00)
== END 2017-03-06 18:00 | disposition home or self-care (01) ==
LOC: ED 04:56 → OBS 07:33
PROVIDERS: ADMIT Nurse Practitioner; ATTEND Nurse Practitioner
DX: R07.2 Precordial pain (principal); G43.909 Migraine, unspecified, not intractable, without status migrainosus; E78.2 Mixed hyperlipidemia; G47.33 Obstructive sleep apnea (adult) (pediatric); I10 Essential (primary) hypertension; N40.0 Benign prostatic hyperplasia without lower urinary tract symptoms; K21.9 Gastro-esophageal reflux disease without esophagitis; Z79.82 Long term (current) use of aspirin; Z83.2 Family history of diseases of the blood and blood-forming organs and certain disorders involving the immune mechanism; Z88.8 Allergy status to other drugs, medicaments and biological substances
CPT/HCPCS: 36415; 71010; 71275; 76705; 80053; 80061; 81001; 83036; 83690; 83735; 83880; 84484; 85025; 85379; 86141; 93005; 93306; 96374; 96375; 96376; 99218; 99284; A9270; J2270; Q0162; Q9967; 87086

== ENCOUNTER 2018-11-10 11:16 | Outpatient (CLI) | payer MEDICARE, OTHER | END 2018-11-10 11:17 | disposition home or self-care (01) | LOC: SC 11:16 | PROVIDERS: ATTEND Internal Medicine Pulmonary Disease | DX: G47.33 Obstructive sleep apnea (adult) (pediatric) (principal) | CPT/HCPCS: 99203; G0463; 99212 ==

== ENCOUNTER 2019-02-22 11:20 | Outpatient (CLI) | payer MEDICARE, OTHER ==
--- NOTE | 2019-02-22 11:48 | SLEEP CARE CONSULTATION ---
Information from patient questionnaire entered by Anais Grimes. I have reviewed and concur with the information entered by Anais Grimes. This document represents the service I personally performed and the decisions made by me, Lindsey Moctezuma MD, [facility]. History of Present Illness Previous diagnosis: Mild, Obstructive Sleep Apnea-Hypopnea Syndrome AHI: 10 Reason for CPAP/BiPAP follow up: first compliance Equipment type: CPAP Equipment obtained from: [employer] Mask style: Full face Prior sleep studies: Yes Year and Where: 2007 [facility] HPI additional information: HPI: Mr. Adame returned today for follow up of nasal CPAP therapy. He was diagnosed to have mild obstructive sleep apnea-hypopnea syndrome. The patient recently acquired a new machine from [employer] and now wears a ResMed AirTouch F- 20 full face mask. He reports using the device nightly and all through the night. The compliance report shows usage in 30 nights out of the past 30 nights, averaging 7.1 hours a night. He complained of no particular problem with the device such as soreness on the face, dry nose, epistaxis, nasal congestion or headache. He thinks that the pressure of 7 - 15 is comfortable. On the CPAP therapy he notices improvement in his sleep quality, and that he wakes up feeling fresher in the morning and more awake/alert during the day. His notices no snore at all. The average residual AHI is 4.7; and air leak, 0 L/min. The 90th percentile pressure is 14.2 cmH2O. CPAP Compliance Data - Data Reviewed with Patient Average duration of nightly device use: 7H 4M Compliance rate %: 97 Current pressure setting (cmH2O): 7-15 Subjective Patient concerns: reports: air blowing in eyes, condensation in mask/hose, dry mouth, nose, throat Initial [place] Sleepiness Scale score: 4 Current [place] Sleepiness Scale score: 9 Allergies and Home Medications Drug allergies reviewed: Yes Home medication list reviewed: Yes Review of Systems Review of systems same as previous: Yes Impression and Plan IMPRESSION: 1. Obstructive Sleep Apnea-Hypopnea Syndrome, mild, with the patient doing well on nasal CPAP therapy. He has excellent compliance and significant clinical improvement. The current pressure appears effective and comfortable. Overall, he is very satisfied with treatment and plans to continue with it long-term. No adjustment is necessary today. PLAN: 1. Continue with autoCPAP set at 7 - 15 cmH2O. 2. Try Respironics DreamWear full face mask 3. Return in one year for follow up or earlier if there is any problem with the treatment. I spent 100% of this 15 minute visit face to face with the patient with greater than 50% of this was spent time counseling the patient and coordination of care.
== END 2019-02-22 11:21 | disposition home or self-care (01) ==
LOC: SC 11:20
PROVIDERS: ATTEND Internal Medicine Pulmonary Disease
DX: G47.33 Obstructive sleep apnea (adult) (pediatric) (principal)
CPT/HCPCS: 99213; G0463; 99212

== ENCOUNTER 2019-03-21 13:52 | Emergency (ER) | payer MEDICARE, OTHER ==
[2019-03-21 14:01] VITALS: BP 130/75
--- NOTE | 2019-03-21 14:29 | ED Physician Documentation ---
PD HPI UPPER EXT INJURY - Stated complaint Stated Complaint: FINGER LAC - Chief complaint Chief Complaint: Laceration - History obtained from History obtained from: Patient - History of Present Illness Location: Left, Hand Type of injury: Laceration Where injury occurred: Home Timing - onset: Today Pain level now: 0 Associated symptoms: No: Numbness (Using a gold nib grinder at home and it slipped and cut hisL hand in the web space at the base of the ring finger. Had on gloves. Washed with water and soap. Has no numbness or tingling down the finger and the hand is working appropriately. He is due for tetanus vaccine. Denies pain.), Tingling Review of Systems Skin: reports: Laceration (s) Musculoskeletal: denies: Extremity pain Neurologic: denies: Numbness PD PAST MEDICAL HISTORY - Past Medical History Cardiovascular: Hypertension, High cholesterol Respiratory: None Endocrine/Autoimmune: Other GI: GERD : Benign prostate hypertrophy HEENT: None Psych: None Musculoskeletal: None Derm: Psoriasis - Past Surgical History Past Surgical History: Yes - Present Medications Home Medications: Ambulatory Orders Medication Instructions Recorded Confirmed Ezetimibe [Zetia] 10 mg PO DAILY 12/14/14 03/06/17 Aspirin Chewable [St Sal 81 mg PO DAILY 03/06/17 03/06/17 Aspirin] Cyclobenzaprine [Flexeril] 10 mg PO TID PRN 03/06/17 03/06/17 Ketorolac [Toradol] 10 mg PO Q6H #20 tablet 03/06/17 Niacin [Niaspan] 500 mg PO QPM #30 tablet 03/06/17 Nitroglycerin [Nitrostat] 0.4 mg SL Q5MIN PRN #1 bottle 03/06/17 Guy-3 Acid Ethyl Esters [Lovaza] 1 gm PO BID #30 capsule 03/06/17 Omeprazole 40 mg PO DAILY 03/06/17 03/06/17 Propranolol [Inderal] 80 mg PO TID 03/06/17 03/06/17 Sumatriptan Succinate [Imitrex] 50 mg PO Q4HR PRN 03/06/17 03/06/17 Tamsulosin [Flomax] 0.4 mg PO DAILY 03/06/17 03/06/17 - Allergies Allergies/Adverse Reactions: Allergies Allergy/AdvReac Type Severity Reaction Status Date / Time amoxicillin Allergy Unknown Verified 03/06/17 05:07 azithromycin [From Zithromax] Allergy Unknown Verified 03/06/17 05:07 doxycycline Allergy Unknown Verified 03/06/17 05:07 Ndrlmut-Rlf-Ass Reductase Allergy Edema Verified 03/21/19 14:01 Inhibitor - Social History Does the pt smoke?: No Smoking Status: Never smoker Does the pt drink ETOH?: Yes Does the pt have substance abuse?: No - Immunizations Immunizations are current?: Yes - POLST Patient has POLST: No PD ED PE NORMAL - Vitals Vital signs reviewed: Yes - General General: Alert and oriented X 3, No acute distress, Well developed/nourished - HEENT HEENT: Atraumatic - Cardiac Cardiac: RRR - Respiratory Respiratory: No respiratory distress - Derm Derm: Other (Approximately 1 cm deep abrasion at theBase of the ring finger in the webspace between the middle and ring finger. This is not deep to the epidermis and there is no active bleeding. Saline soaked acute cotton-tipped applicators and forceps were used to remove the metal shavings that were in the base of the wound. This did elicit a little bit of bleeding. He tolerated this very well. 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 Is not deep enough to suture and this was discussed with the patient. He was updated on his tetanus vaccine. Departure - Departure Disposition: 01 Home, Self Care Clinical Impression: Abrasion Condition: Good Instructions: ED Abrasion Follow-Up: Raf Yan MD [Primary Care Provider] - Comments: Keep the wound clean with antibacterial soap and water. May apply a thin layer of antibiotic ointment if desired. Keep it covered until healed. Return if signs of infection to include spreading redness, purulent drainage or fever.
[2019-03-21] MEDS ORDERED: TETANUS/DIPHTHERIA/PERTUSSIS 0.5 ML SYRINGE IM ONE (14:43)
[2019-03-21] MEDS ORDERED: BACITRACIN ZINC OINT 14 GM TOP STA (15:10)
[2019-03-21] MEDS ORDERED: BACITRACIN ZINC OINT 14 GM TOP ONE (15:17)
== END 2019-03-21 15:30 | disposition home or self-care (01) ==
LOC: ED 13:52
DX: S60.415A Abrasion of left ring finger, initial encounter (principal); W31.1XXA Contact with metalworking machines, initial encounter; Y92.009 Unspecified place in unspecified non-institutional (private) residence as the place of occurrence of the external cause; I10 Essential (primary) hypertension
CPT/HCPCS: 90471; 90715; 99282; A9270

== ENCOUNTER 2020-02-29 10:24 | Outpatient (CLI) | payer MEDICARE, OTHER ==
--- NOTE | 2020-02-29 10:08 | SLEEP CARE CONSULTATION ---
Information from patient questionnaire entered by Sonny Trejo. I have reviewed and concur with the information entered by Sonny Trejo. This document represents the service I personally performed and the decisions made by me, Lindsey Moctezuma MD, [facility]. History of Present Illness Service Date and Time: 02/29/2020 1000 Previous diagnosis: Mild, Obstructive Sleep Apnea-Hypopnea Syndrome AHI: 10 Reason for follow up: annual (Last seen 02/2019) Equipment type: CPAP Equipment obtained from: [facility] Prior sleep studies: Yes Year and Where: 2007 [facility] Type of Sleep Study: Polysomnography HPI additional information: To minimize the risk of COVID-19 exposure, the patient has requested and consented to this video telemedicine visit. The patient also agrees to having his insurance billed. HPI: Mr. Adame was called today for follow up of nasal CPAP therapy. He was diagnosed to have mild obstructive sleep apnea-hypopnea syndrome. The patient recently gets his supplies from [facility]. He wears a ResMed F-20 full face mask (he does not like the memory foam cushion). He reports using the device nightly and all through the night. The compliance report shows usage in 179 nights out of the past 180 nights, averaging 7.4 hours a night. He complained of no particular problem with the device such as soreness on the face, dry nose, epistaxis, nasal congestion or headache. He thinks that the pressure of 7 - 15 cmH2O is comfortable. On the CPAP therapy he notices improvement in his sleep quality, and that he wakes up feeling fresher in the morning and more keiry ke/alert during the day. His notices no snore at all. The average residual AHI is 5.5; and air leak, 0 L/min. The 90th percentile pressure is 11.5 cmH2O. PE: weight = 190 lbs according to the patient. Sleep Study - Results Prior sleep studies: Yes Year and Where: 2007 [facility] CPAP Compliance Data - Data Reviewed with Patient Average duration of nightly device use: 7 h 22 min Compliance rate %: 98 Current pressure setting (cmH2O): 7-15 Average residual AHI: 5.5 Subjective Initial [place] Sleepiness Scale score: 4 (in 2019) Allergies and Home Medications Drug allergies reviewed: Yes Home medication list reviewed: Yes Review of Systems Review of systems same as previous: Yes Physical Exam Height: 5 ft 10 in Impression and Plan IMPRESSION: 1. Obstructive Sleep Apnea-Hypopnea Syndrome, mild, with the patient doing well on nasal CPAP therapy. He has excellent compliance and significant clinical improvement. The current pressure appears slightly ineffective but comfortable. Overall, he is very satisfied with treatment and plans to continue with it long-term. Because the residual AHI is slightly elevated, I will increase the pressure a little. PLAN: 1. Increase autoCPAP to 8 - 15 cmH2O. 2. Try to lose weight. 3. Return in one year for follow up or earlier if there is any problem with the treatment. Visit Type: Telehealth Video Video Type: [employer] Patient Location: Home Location of Provider: Home Patient agrees and consents to this telehealth visit type: Yes Patient agrees to have their insurance billed: Yes Time Spent with Patient (minutes): 15 Provider Statement: I spent 100% of the Telehealth Video Call with the patient with greater than 50% spent counseling the patient and coordination of care.
== END 2020-02-29 10:25 | disposition home or self-care (01) ==
LOC: SC 10:24
PROVIDERS: ATTEND Internal Medicine Pulmonary Disease
DX: G47.33 Obstructive sleep apnea (adult) (pediatric) (principal)

== ENCOUNTER 2021-03-12 09:31 | Outpatient (CLI) | payer MEDICARE, OTHER ==
--- NOTE | 2021-03-12 10:49 | SLEEP CARE CONSULTATION ---
Information from patient questionnaire entered by Anais Grimes. I have reviewed and concur with the information entered by Anais Grimes. This document represents the service I personally performed and the decisions made by me, Lindsey Moctezuma MD, [facility]. History of Present Illness Service Date and Time: 03/12/2021 09 Previous diagnosis: Mild, Obstructive Sleep Apnea-Hypopnea Syndrome AHI: 10 Reason for follow up: annual Equipment type: CPAP [facility] Mask style: Full face Prior sleep studies: Yes Year and Where: 2007 [facility] Type of Sleep Study: Polysomnography HPI additional information: Mr. Adame was called today for follow up of nasal CPAP therapy. He was diagnosed to have mild obstructive sleep apnea-hypopnea syndrome. The patient recently gets his supplies from [facility]. He wears a ResMed F-20 full face mask (he does not like the memory foam cushion). He reports using the device nightly and all through the night. The compliance report shows usage in 365 nights out of the past 365 nights, averaging 7.2 hours a night. He complained of no particular problem with the device such as soreness on the face, dry nose, epistaxis, nasal congestion or headache. He thinks that the pressure of 7 - 15 cmH2O is comfortable. On the CPAP therapy he notices improvement in his sleep quality, and that he wakes up feeling fresher in the morning and more awake/alert during the day. His notices no snore at all. The average residual AHI is 5.9; and air leak, 0 L/min. The 90th percentile pressure is 13.8 cmH2O. Sleep Study - Results Prior sleep studies: Yes Year and Where: 2007 [facility] CPAP Compliance Data - Data Reviewed with Patient Average duration of nightly device use: 7 hours 10 minutes Compliance rate %: 98 Current pressure setting (cmH2O): 7-15 Subjective Initial [place] Sleepiness Scale score: 4 (in 2019) Allergies and Home Medications Drug allergies reviewed: Yes Home medication list reviewed: Yes Review of Systems Review of systems same as previous: Yes Physical Exam Height: 5 ft 10 in Impression and Plan IMPRESSION: 1. Obstructive Sleep Apnea-Hypopnea Syndrome, mild, with the patient continuing to do well on nasal CPAP therapy. He has excellent compliance and significant clinical improvement. The current pressure appears slightly ineffective but comfortable. Overall, he is very satisfied with treatment and plans to continue with it long-term. Because the residual AHI is slightly elevated, I will increase the pressure a little. PLAN: 1. Increase autoCPAP to 9 - 15 cmH2O via the modem. 2. Try to lose weight. 3. Return in one year for follow up or earlier if there is any problem with the treatment. Follow up with Sleep Care in: 1 year Follow up recommended for: Weight management Visit Type: Telehealth Phone Video Type: Other Patient Location: Home Location of Provider: Other Patient agrees and consents to this telehealth visit type: Yes Patient agrees to have their insurance billed: Yes Time Spent with Patient (minutes): 15 Provider Statement: I spent 100% of the Telehealth Phone Call with the patient with greater than 50% spent counseling the patient and coordination of care.
== END 2021-03-12 09:32 | disposition home or self-care (01) ==
LOC: SC 09:31
PROVIDERS: ATTEND Internal Medicine Pulmonary Disease
DX: G47.33 Obstructive sleep apnea (adult) (pediatric) (principal)

== ENCOUNTER 2022-02-22 10:02 | Outpatient (CLI) | payer MEDICARE, OTHER ==
[2022-02-22 10:16] LABS: BASOPHILS % (AUTO) 0.7 %; EOSINOPHILS # (AUTO) 0.2 10^3/uL (0.0-0.7); HCT - HEMATOCRIT 46.1 % (42.0-52.0); HGB - HEMOGLOBIN 16.2 g/dL (14.0-18.0); LYMPHOCYTES # (AUTO) 1.4 10^3/uL (1.5-3.5); LYMPHOCYTES % (AUTO) 24.8 %; MEAN CORPUSCULAR HEMOGLOBIN 31.1 pg (27.0-31.0); MEAN CORPUSCULAR HGB CONC 35.1 g/dL (32.0-36.0); MEAN CORPUSCULAR VOLUME 88.5 fL (80.0-94.0); MONOCYTES # (AUTO) 0.6 10^3/uL (0.0-1.0); MONOCYTES % (AUTO) 10.1 %; NEUTROPHILS # (AUTO) 3.5 10^3/uL (1.5-6.6); NEUTROPHILS % (AUTO) 61.1 %; PLT - PLATELET COUNT 182 10^3/uL (130-450); RED BLOOD COUNT 5.21 10^6/uL (4.70-6.10); RED CELL DISTRIBUTION WIDTH 11.9 % (12.0-15.0); WHITE BLOOD COUNT 5.7 x10^3/uL (4.8-10.8)
[2022-02-22 10:34] LABS: ALBUMIN 4.3 g/dL (3.2-5.5); ALBUMIN/GLOBULIN RATIO 1.7 (1.0-2.2); ALKALINE PHOSPHATASE 87 IU/L (42-121); ALT ALANINE AMINOTRANSFERASE 30 IU/L (10-60); AST ASPARTATE AMINOTRANSFERASE 20 IU/L (10-42); BILIRUBIN,TOTAL 0.8 mg/dL (0.2-1.0); BUN - BLOOD UREA NITROGEN 16 mg/dL (6-20); CALCIUM 9.2 mg/dL (8.5-10.3); CARBON DIOXIDE - CO2 27 mmol/L (21-32); CHLORIDE 105 mmol/L (101-111); CHOL/HDL RATIO 5.1 (<5.0); CHOLESTEROL 251 mg/dL; CREATININE 0.9 mg/dL (0.6-1.2); GFR - MDRD 84 (>89); GLUCOSE 125 mg/dL (70-100); HDL CHOLESTEROL 49 mg/dL; LDL CHOLESTEROL,CALCULATED 152 mg/dL; LDL/HDL RATIO 3.1 (<3.6); POTASSIUM 4.1 mmol/L (3.5-5.0); SODIUM 139 mmol/L (135-145); TOTAL PROTEIN 6.9 g/dL (6.7-8.2); TRIGLYCERIDES 252 mg/dL; VLDL CHOLESTEROL 50 mg/dL
[2022-02-22 11:53] LABS: PSA TOTAL 0.007 ng/mL (0.000-2.000)
== END 2022-02-22 10:03 | disposition home or self-care (01) ==
LOC: LAB 10:02
PROVIDERS: ATTEND Internal Medicine
DX: Z00.00 Encounter for general adult medical examination without abnormal findings (principal); G60.0 Hereditary motor and sensory neuropathy; D68.51 Activated protein C resistance; K21.9 Gastro-esophageal reflux disease without esophagitis; E78.5 Hyperlipidemia, unspecified; G43.909 Migraine, unspecified, not intractable, without status migrainosus; G47.33 Obstructive sleep apnea (adult) (pediatric); C61 Malignant neoplasm of prostate; L40.9 Psoriasis, unspecified
CPT/HCPCS: 36415; 80053; 80061; 83721; 84153; 84443; 85025

== ENCOUNTER 2022-04-25 15:09 | Outpatient (CLI) | payer MEDICARE, OTHER ==
--- NOTE | 2022-04-25 15:43 | XRAY Report ---
PROCEDURE: Chest 2 View X-Ray INDICATIONS: ACUTE COUGH TECHNIQUE: Two view(s) of the chest. COMPARISON: None. FINDINGS: Surgical changes and devices: None. Lungs and pleura: No pleural effusions or pneumothorax. Lungs are clear. Mediastinum: Mediastinal contours are normal. Heart size is normal. Bones and chest wall: No suspicious bony abnormalities. Soft tissues appear unremarkable. IMPRESSION: No acute cardiopulmonary process demonstrated radiographically. Reviewed by: Mohan Solis MD on 04/25/2022 3:42 PM PST Approved by: Mohan Solis MD on 04/25/2022 3:42 PM [facility] Station ID: [id number]
== END 2022-04-25 15:10 | disposition home or self-care (01) ==
LOC: DI 15:09
PROVIDERS: ATTEND Internal Medicine
DX: R05.1 Acute cough (principal); J06.9 Acute upper respiratory infection, unspecified

== ENCOUNTER 2022-06-03 13:17 | Outpatient (CLI) | payer MEDICARE, OTHER ==
[2022-06-03 14:45] VITALS: BP 128/70
--- NOTE | 2022-06-03 14:45 | SLEEP CARE CONSULTATION ---
Information from patient questionnaire entered by Hannah Robles. I have reviewed and concur with the information entered by Hannah Robles. This document represents the service I personally performed and the decisions made by me, Lindsey Moctezuma MD, [facility]. History of Present Illness Service Date and Time: 06/03/2022 1317 Previous diagnosis: Mild, Obstructive Sleep Apnea-Hypopnea Syndrome AHI: 10 Reason for follow up: annual (LAST SEEN 02/2021) Equipment type: CPAP (RESMED) Equipment obtained from: [employer] Mask style: Full face Prior sleep studies: Yes Year and Where: 2007 [facility] Type of Sleep Study: Polysomnography HPI additional information: Mr. Adame was diagnosed to have mild obstructive sleep apnea-hypopnea syndrome and returns today for follow up of CPAP therapy. The patient purchased the device from [employer] and was fitted with a nasal mask. He uses the device nightly and all through the night. The compliance report shows that he uses the device 364 nights out of the past 365 nights, averaging 7.2 hours a night. The > 4 hour compliance rate for the past 30 days is 99%. He complains of no particular problem with the device such as soreness on the face, dry nose, epistaxis, nasal congestion or headache. He thinks that the pressure of 9 - 15 cmH2O is comfortable. On the CPAP therapy he notices improvement in his sleep quality, and that he wakes up feeling fresher in the morning and more awake/alert during the day. His notices no snore at all. [place] Sleepiness Scale score is 3. The average residual AHI is 5.2; and average time in large leak per day is 0 minutes a night. The 90th percentile pressure is 14.1 cmH2O. Sleep Study - Results Type of Sleep Study: Polysomnography Prior sleep studies: Yes Year and Where: 2007 [facility] CPAP Compliance Data - Data Reviewed with Patient Average duration of nightly device use: 7HRS 21MIN Compliance rate %: 99 (12/02/21-05/30/22) Current pressure setting (cmH2O): 9-15 Average residual AHI: 5.6 Subjective Initial [place] Sleepiness Scale score: 4 (in 2019) Current [place] Sleepiness Scale score: 3 (06/03/22) Allergies and Home Medications Drug allergies reviewed: Yes Home medication list reviewed: Yes Allergy and home medication list: Allergies amoxicillin Allergy (Verified 03/06/17 05:07) Unknown azithromycin [From Zithromax] Allergy (Verified 03/06/17 05:07) Unknown doxycycline Allergy (Verified 03/06/17 05:07) Unknown Fylgeeo-HPN-HwS Reductase Inhibitor [Fpgnnfm-Nok-Exw Reductase Inhibitor] Jovany brenda (Verified 03/21/19 14:01) Edema Review of Systems Review of systems same as previous: Yes Physical Exam Vital signs obtained and entered by: HANNAH Richardson MA Blood Pressure: 128/70 (LEFT ARM) Cuff size: regular Heart Rate: 67 O2 Saturation: 97 Height: 5 ft 10 in Weight: 208 lb 9.6 oz Body Mass Index: 29.9 BMI Classification: Overweight Impression and Plan IMPRESSION: 1. Obstructive Sleep Apnea-Hypopnea Syndrome, mild (AHI was 10 in [place] 12 years ago), with the patient continuing to do well on nasal CPAP therapy. He has excellent compliance and significant clinical benefits. The current pressure appears slightly ineffective still. Overall, he is very satisfied with treatment and plans to continue with it long-term. The patient does not want any more pressure increase. I recommend try a nasal mask because full face masks often require higher pressure. PLAN: 1. Continue with autoCPAP set at 9 - 15 cm H2O. 1. Try a nasal mask. List given. 2. Return in one year for follow up or earlier if there is any problem with the treatment. Continue with device pressure at (cmH2O): 9 - 15 Follow up with Sleep Care in: 1 year Visit Type: In Office Time Spent with Patient (minutes): 15 Provider Statement: I spent 100% of the Face to Face Visit with the patient with greater than 50% spent counseling the patient and coordination of care.
== END 2022-06-03 13:18 | disposition home or self-care (01) ==
LOC: SC 13:17
PROVIDERS: ATTEND Internal Medicine Pulmonary Disease
DX: G47.33 Obstructive sleep apnea (adult) (pediatric) (principal); E66.3 Overweight; Z68.29 Body mass index [BMI] 29.0-29.9, adult
CPT/HCPCS: 99212; G0463

== ENCOUNTER 2023-04-03 10:28 | Outpatient (CLI) | payer MEDICARE, OTHER ==
[2023-04-03 10:47] LABS: BASOPHILS % (AUTO) 0.7 %; EOSINOPHILS # (AUTO) 0.2 10^3/uL (0.0-0.7); EOSINOPHILS % (AUTO) 3.6 %; HCT - HEMATOCRIT 45.1 % (42.0-52.0); HGB - HEMOGLOBIN 15.6 g/dL (14.0-18.0); LYMPHOCYTES # (AUTO) 1.5 10^3/uL (1.5-3.5); LYMPHOCYTES % (AUTO) 23.8 %; MEAN CORPUSCULAR HEMOGLOBIN 30.8 pg (27.0-31.0); MEAN CORPUSCULAR HGB CONC 34.6 g/dL (32.0-36.0); MEAN PLATELET VOLUME 10.5 fL (7.4-11.4); MONOCYTES # (AUTO) 0.6 10^3/uL (0.0-1.0); MONOCYTES % (AUTO) 9.7 %; NEUTROPHILS # (AUTO) 3.8 10^3/uL (1.5-6.6); NEUTROPHILS % (AUTO) 61.9 %; PLT - PLATELET COUNT 176 10^3/uL (130-450); RED BLOOD COUNT 5.07 10^6/uL (4.70-6.10); RED CELL DISTRIBUTION WIDTH 12.1 % (12.0-15.0); WHITE BLOOD COUNT 6.1 x10^3/uL (4.8-10.8)
[2023-04-03 11:02] LABS: ALBUMIN 4.3 g/dL (3.2-5.5); ALBUMIN/GLOBULIN RATIO 2.5 (1.0-2.2); ALKALINE PHOSPHATASE 91 IU/L (42-121); ALT ALANINE AMINOTRANSFERASE 21 IU/L (10-60); AST ASPARTATE AMINOTRANSFERASE 16 IU/L (10-42); BILIRUBIN,TOTAL 0.5 mg/dL (0.2-1.0); BUN - BLOOD UREA NITROGEN 14 mg/dL (6-20); CALCIUM 9.3 mg/dL (8.5-10.3); CARBON DIOXIDE - CO2 29 mmol/L (21-32); CHLORIDE 107 mmol/L (101-111); CHOL/HDL RATIO 5.1 (<5.0); CHOLESTEROL 223 mg/dL; CREATININE 0.9 mg/dL (0.6-1.3); GFR - MDRD 83 (>89); GLUCOSE 111 mg/dL (74-104); HDL CHOLESTEROL 44 mg/dL; LDL CHOLESTEROL,CALCULATED 133 mg/dL; POTASSIUM 4.2 mmol/L (3.5-4.5); SODIUM 140 mmol/L (135-145); TRIGLYCERIDES 229 mg/dL (48-352); VLDL CHOLESTEROL 46 mg/dL
[2023-04-03 11:16] LABS: THYROID STIMULATING HORMONE 2.14 uIU/mL (0.34-5.60)
[2023-04-03 12:03] LABS: ESTIMATED AVERAGE GLUCOSE 117 mg/dL (70-100); HEMOGLOBIN A1c% 5.7 % (4.27-6.07); PSA TOTAL < 0.008 ng/mL (0.000-2.000)
== END 2023-04-03 10:29 | disposition home or self-care (01) ==
LOC: LAB 10:28
PROVIDERS: ATTEND Internal Medicine
DX: Z00.00 Encounter for general adult medical examination without abnormal findings (principal); G60.0 Hereditary motor and sensory neuropathy; D68.51 Activated protein C resistance; K21.9 Gastro-esophageal reflux disease without esophagitis; R73.01 Impaired fasting glucose; G43.909 Migraine, unspecified, not intractable, without status migrainosus; G47.33 Obstructive sleep apnea (adult) (pediatric); C61 Malignant neoplasm of prostate; L40.9 Psoriasis, unspecified; Z79.899 Other long term (current) drug therapy
CPT/HCPCS: 36415; 80053; 80061; 83036; 83721; 84153; 84443; 85025

== ENCOUNTER 2023-06-18 13:15 | Outpatient (CLI) | payer MEDICARE, OTHER ==
--- NOTE | 2023-06-18 15:30 | XRAY Report ---
PROCEDURE: Cervical Spine 2-3V INDICATIONS: CERVICAL SPASM TECHNIQUE: 3 view(s) of the cervical spine were acquired. COMPARISON: None. FINDINGS: Bones: No fractures or dislocations to the T1 level. The lateral masses of C1 appear intact on the odontoid view. No suspicious bony lesions. Multilevel facet arthropathy. Disc height loss and anter ior osteophytosis at C4-C5 and C5-C6. Soft tissues: No prevertebral soft tissue swelling. IMPRESSION: 1. No acute bony abnormality. 2. Cervical spondylosis. Comment: Depending on symptomatology, cervical spine MRI may be helpful. Reviewed by: Tony Huang MD on 06/18/2023 3:29 PM PST Approved by: Tony Huang MD on 06/18/2023 3:29 PM [facility] Station ID: [id number]
== END 2023-06-18 13:30 | disposition home or self-care (01) ==
LOC: DI.N 13:15
PROVIDERS: ATTEND Family Medicine
DX: M62.838 Other muscle spasm (principal); M47.812 Spondylosis without myelopathy or radiculopathy, cervical region

== ENCOUNTER 2023-06-26 14:15 | Outpatient (CLI) | payer MEDICARE, OTHER ==
--- NOTE | 2023-06-26 14:40 | Sleep Patient Instructions ---
Sleep Center Visit Summary - Patient Visit Information Reason for Visit: Annual visit - Patient Instructions Additional Instructions: You will continue with CPAP therapy with pressure set at 9-15 cmH2O. A supply prescription will be updated with your DME. We encourage you to continue to try to lose weight. Please follow up with the sleep care office in 1 year. - Clinic Information Contact: [facility] [address] [place] [address] [email or web address] T: [phone]
--- NOTE | 2023-06-26 14:46 | SLEEP CARE CONSULTATION ---
Information from patient questionnaire entered by Hannah Robles. I have reviewed and concur with the information entered by Hannah Robles. This document represents the service I personally performed and the decisions made by , Shameka Dave ARNP. History of Present Illness Service Date and Time: 06/26/2023 1415 Previous diagnosis: Mild, Obstructive Sleep Apnea-Hypopnea Syndrome AHI: 10 Reason for follow up: annual (LAST SEEN 05/2022) Equipment type: CPAP (RESMED Airsense 10; s/u 12/2018) Equipment obtained from: [employer] (getting supplies) Mask style: Full face Backup mask available: Yes Last cushion change: 3-4 days ago Prior sleep studies: Yes Year and Where: 2007 [facility] Type of Sleep Study: Polysomnography HPI additional information: BASIA BLACKBURN was diagnosed to have mild, AHI 10, obstructive sleep apnea- hypopnea syndrome and returned today for CPAP therapy annual follow-up. Sleep Study - Results Type of Sleep Study: Polysomnography Prior sleep studies: Yes Year and Where: 2007 [facility] CPAP Compliance Data - Data Reviewed with Patient Average duration of nightly device use: 7 HRS 25 MINS Compliance rate %: 98 (06/24/22-06/23/23; 364/365 days used) Current pressure setting (cmH2O): 9-15 Average residual AHI: 4.6 Central apnea: 0.3 Obstructive apnea: 2 Hypopnea: 2.2 Average large leak: 0 L/min Subjective Patient concerns: reports: mask discomfort (sometimes have to wear it tight). denies: aerophagia, air blowing in eyes, mask leak noise, condensation in mask/hose, nasal congestion, dry mouth, nose, throat, epistaxis Observed to snore while using device: No Current pressure setting perceived as: comfortable On therapy, patient: reports: sleeping better, awakening more refreshed, being more awake and alert during the day, more rested overall. denies: drowsiness while driving Initial [place] Sleepiness Scale score: 4 (in 2019) Current [place] Sleepiness Scale score: 7 (06/27/23) Allergies and Home Medications Known drug allergies: Yes (as listed) Drug allergies reviewed: Yes Home medication list reviewed: Yes (no changes) Allergy and home medication list: Allergies amoxicillin Allergy (Verified 06/24/23 09:42) Unknown azithromycin [From Zithromax] Allergy (Verified 06/24/23 09:42) Unknown doxycycline Allergy (Verified 06/24/23 09:42) Unknown Brnlbdf-TSU-BiO Reductase Inhibitor [Ccjykdv-Iwc-Fpa Reductase Inhibitor] Allergy (Verified 06/24/23 09:42) Edema Review of Systems Review of systems same as previous: Yes (NO CHANGE) Physical Exam Vital signs obtained and entered by: HANNAH Richardson MA Blood Pressure: 137/79 (RIGHT ARM) Cuff size: regular Heart Rate: 64 O2 Saturation: 99 Height: 5 ft 10 in Weight: 213 lb Body Mass Index: 30.5 BMI Classification: Obese Impression and Plan 1. Obstructive Sleep Apnea-Hypopnea Syndrome, mild, with good treatment compliance and good apnea control. On CPAP therapy, the patient has better sleep quality and is more rested overall. He states sometimes he has to tighten his mask to keep it from leaking but otherwise he has no issues. He states it is not hurting his face and is just because the pressure will go up higher sometimes. Patient has significant improvement of their sleep apnea and is satisfied with current CPAP therapy. Patient denies problems with oral dryness, nasal congestion, epistaxis, skin irritation or aerophagia. Patient's apnea severity and rationale for treatment to reduce apnea, improve sleep quality and reduce cardiovascular and cerebrovascular events was reviewed. I also reviewed the benefit of consistent device use of CPAP for gastric reflux and migraines. 2. Obesity, unspecified. Currently patients BMI is 30.5. Obesity increases the risk of apnea, CPAP pressure requirements and overall health risks especially cardiovascular and diabetes. Thus patient is advised to lose weight. * Continue auto CPAP pressure at 9-15 cmH2O * Update supply prescription * Notify me if snoring with mask or feeling that the pressure is too much or too little * Attempt to lose weight * Call this office if any problems using CPAP * Return for follow up in 12 months, or sooner if concerns arise Counseling Topics: Spare mask, Weight loss health impact Prescriptions: Device supplies Follow up with Sleep Care in: 1 year Visit Type: In Office Time Spent with Patient (minutes): 20 Provider Statement: I spent 100% of the Face to Face Visit with the patient with greater than 50% spent counseling the patient and coordination of care.
[2023-06-26 14:54] VITALS: BP 137/79; O2SAT 99
== END 2023-06-26 14:16 | disposition home or self-care (01) ==
LOC: SC 14:15
PROVIDERS: ATTEND Nurse Practitioner Family
DX: G47.33 Obstructive sleep apnea (adult) (pediatric) (principal); E66.9 Obesity, unspecified; Z68.30 Body mass index [BMI] 30.0-30.9, adult
CPT/HCPCS: 99213; G0463; 99212